=== PATIENT | female | born 1995 | race Caucasian/White ===

== ENCOUNTER 2017-03-28 14:31 | Emergency (ER) | payer MEDICAID ==
[~2017-03-28] VITALS: Ht 165.1 cm; Wt 68.0 kg
--- NOTE | 2017-03-28 15:45 | NUR ---
Dr Solomon at the bedside for eval and exam.
[2017-03-28] MEDS ORDERED: DEXAMETHASONE SOD PHOSPHATE 4 MG INJ IV ONE (16:00)
[2017-03-28 16:05] VITALS: BP 112/67
--- NOTE | 2017-03-28 16:09 | NUR ---
Patient discharged to home in stable conditon. Written and verbal after care instructions given. Patient verbalizes understanding of instructions.
[2017-03-28] MEDS ORDERED: DEXAMETHASONE SOD PHOSPHATE 10 MG INJ ONE (16:13)
[2017-03-28] MEDS ORDERED: DEXAMETHASONE SOD PHOSPHATE 4 MG INJ ONE (16:13)
== END 2017-03-28 16:12 | disposition home or self-care (01) ==
LOC: ER 14:31
DX: J02.0 Streptococcal pharyngitis (principal)
CPT/HCPCS: A4663; J1100